=== PATIENT | male | born 1970 | race Native Hawaiian/Other Pacific Islander ===

== ENCOUNTER 2019-04-27 10:48 | Outpatient (CLI) | payer OTHER | END 2019-04-27 20:38 | disposition home or self-care (01) | LOC: RAD 10:48 | DX: M54.9 Dorsalgia, unspecified (principal) ==

== ENCOUNTER 2022-08-06 10:31 | Emergency (ER) | payer OTHER ==
[~2022-08-06] VITALS: Ht 160 cm; Wt 99.8 kg
== END 2022-08-06 13:08 | disposition home or self-care (01) ==
LOC: ED 10:31
PROC: 0HQ0XZZ Repair Scalp Skin, External Approach (ICD-10-PCS; principal; 2022-08-06)
DX: S01.01XA Laceration without foreign body of scalp, initial encounter (principal); W22.8XXA Striking against or struck by other objects, initial encounter; Y92.89 Other specified places as the place of occurrence of the external cause
CPT/HCPCS: 99283; J7040